=== PATIENT | male | born 1965 | race Caucasian/White ===

== ENCOUNTER → 2017-06-28 | Day surgery (SDC) | payer OTHER ==
[~2017-06-28] MED LIST: ASPIRIN81 M2 PO; ESOMEPRAZOLE MA40 MG
--- NOTE | ~2017-06-28 | OR ---
Unit #: [id number] #: [id number] Patient: AMRITA FARAH [id number] [address] [place], [place] [address] [id number] MR#: [id number] NAME: AMRITA FARAH ROOM: Date of Procedure: 06/28/2017 Admission Date: 06/28/2017 Surgeon: Lito Henning M.D. : 1965 Attending Physician: Lito Henning M.D. OPERATIVE REPORT PREOPERATIVE DIAGNOSES 1. Right-sided inguinal hernia. 2. Left-sided inguinal hernia. POSTOPERATIVE DIAGNOSES 1. Direct right inguinal hernia. 2. Direct left inguinal hernia. PROCEDURES PERFORMED 1. Laparoscopic preperitoneal inguinal hernia repair of right-sided direct inguinal hernia. 2. Laparoscopic preperitoneal inguinal hernia repair of left-sided direct inguinal hernia. LICENSED MASS REAL ESTATE APPRAISER Rigoberto Gunter M.D. ANESTHESIA General endotracheal anesthesia. ESTIMATED BLOOD LOSS Minimal. IV FLUIDS 800 crystalloid. COMPLICATIONS None. INDICATIONS FOR PROCEDURE The patient is a 51-year-old gentleman with bilateral inguinal hernias. DESCRIPTION OF PROCEDURE The patient was taken to the operating theater and placed in supine position. General anesthesia was induced. The abdomen was prepped and draped. Infraumbilical incision was then made. A small incision was made in the anterior sheath. I created the preperitoneal space with blunt dissection. A Veress needle was placed intra-abdominally. The abdomen was insufflated to 15 mmHg with CO2. Under direct vision, I placed a 5-mm port. The patient was placed in Trendelenburg. I identified the aforementioned hernias with the direct hernia on the right and indirect hernia on the left. No other abnormalities. The pneumoperitoneum was Unit #: [id number] #: [id number] Patient: AMRITA FARAH released. Using the Auto[employer] balloon dissector system, I created the preperitoneal space bilateral. I placed two 5-mm ports in the midline. I dissected the right groin, identifying the lateral space. The direct inguinal hernia was partially reduced with creation of the preperitoneal space. I completed the reduction. I identified the Ashok ligament. I skeletonized the cord and lam back the peritoneal reflection. I then placed a large 3DMax mesh into position. This was anteriolized and secured with Ashok ligament as well as lateral anterior musculature with a tacking device. I then went to the other side of the table. I did a similar dissection on the left side. I dissected the lateral space. I identified the direct hernia. I completed the reduction and identified Ashok ligament. I then skeletonized the cord and reduced the peritoneal reflection. I placed a large 3DMax mesh into position. This was anteriolized and covered the direct and indirect spaces nicely. This was secured to Ashok ligament as well as lateral anterior musculature with tacking device. Hemostasis was adequate. I released the pneumopreperitoneum with care taken to avoid the peritoneum sliding posterior to the mesh. I then closed the fascia with 0 Vicryl and skin with 4-0 Vicryl. The patient tolerated the procedure well, sent to recovery room in good condition. Dictated by... Dre London/loulou TD: 06/29/2017 08:15 JOB #: [id number] OPERATIVE REPORT Page 1 of 1 X Lito Henning MD PROCEDURE OPERATIVE NOTE
== END | disposition home or self-care (01) ==
LOC: CSUR 11:14
DX: K40.20 Bilateral inguinal hernia, without obstruction or gangrene, not specified as recurrent (principal); G47.30 Sleep apnea, unspecified; K21.9 Gastro-esophageal reflux disease without esophagitis; F17.210 Nicotine dependence, cigarettes, uncomplicated; Z88.8 Allergy status to other drugs, medicaments and biological substances; Z90.49 Acquired absence of other specified parts of digestive tract
CPT/HCPCS: C1768; C1781; J0330; J0690; J1100; J1644; J2250; J2405; J2550; J2710; J3010